=== PATIENT | male | born 1965 | race Caucasian/White ===

== ENCOUNTER → 2020-09-17 16:52 | Outpatient (BNVA) | payer MEDICAID, SELFPAY | PROVIDERS: Family Provider Family Medicine; Visit Provider Nurse Practitioner Family | DX: Z02.83 Encounter for blood-alcohol and blood-drug test (principal) | CPT/HCPCS: 80307 ==

== ENCOUNTER → 2020-10-30 11:23 | Outpatient (BNVA) | payer MEDICAID, SELFPAY | PROVIDERS: Family Provider Family Medicine; Visit Provider Family Medicine | DX: I10 Essential (primary) hypertension (principal); M17.11 Unilateral primary osteoarthritis, right knee; E78.2 Mixed hyperlipidemia; R53.83 Other fatigue | CPT/HCPCS: 73562; 80053; 80061; 82607 ==

== ENCOUNTER → 2020-11-18 09:47 | Outpatient (BNVA) | payer MEDICAID, SELFPAY | PROVIDERS: Family Provider Family Medicine; Referring Provider Family Medicine; Visit Provider Specialist | DX: M17.11 Unilateral primary osteoarthritis, right knee (principal) | CPT/HCPCS: 73560; 73565 ==

== ENCOUNTER → 2021-02-06 09:04 | Outpatient (BNVA) | payer BC, SELFPAY | PROVIDERS: Family Provider Family Medicine; Visit Provider Specialist | DX: Z01.818 Encounter for other preprocedural examination (principal); M17.11 Unilateral primary osteoarthritis, right knee | CPT/HCPCS: 87635 ==

== ENCOUNTER 2021-02-11 09:57 | Observation (INO) | payer BC, MEDICAID, SELFPAY ==
[2021-02-06 10:16] VITALS: BMI 28.0
--- NOTE | 2021-02-06 10:46 | ECG_ITS ---
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 Measurements Intervals [place] Rate: 59 P: 72 PA: 132 QRS: 15 QRSD: 101 T: 69 QT: 377 QTc: 374 Interpretive Statements SINUS BRADYCARDIA NONSPECIFIC T-WAVE ABNORMALITY No previous ECG available for comparison Electronically Signed On 02-06-2021 20:40:51 [employer]PERATIONS MANAGER by Wili Huang M.D. [email or web address]
--- NOTE | 2021-02-06 10:46 | ANES.PREANE2 ---
Pre-Anesthetic Assessment Pre-Anesthetic Assessment: Height/Weight: Height 1.7 m Weight 81.193 kg Proposed Procedure: Operation Date: 02/11/21 07:00 Proposed Procedures p Total Knee Arthroplasty 97532 M17.10(Right) - Ankita Mercedes MD Was Beta Nishant taken within 24 hours: N/A Was Clonidine taken within 24 hours: N/A Social: Social History: Alcohol and Tobacco Exam: Pre-Anes Outpt Exam: alert, oriented x 3, clear to auscultation bilaterally and regular rate & rhythm Airway: Submandibular: WNL Cervical ROM: WNL MP: 1 Dentition: False Pulmonary: Pulmonary: SELBY Comments: Denies lung disease, active smoker CV/HEM: CV/HEM: HTN Comments: Denies cardiac disease EKG reviewed. : : None reported Hepatic: Hepatic: None reported GI: GI: None reported Metabolic: Metabolic: None reported Musc/skel: Comments: Chronic right sided pain s/p CVA Neuropsych: Neuropsych: CVA Comments: Stroke from uncontrolled htn per patient. Patient awoke with stroke symptoms. Residual sequalae of right side weakness and pain. Anesthetic Plan: ASA status: 3 Anesthesia: Anesthesia Evaluation, Eval. for regional block, General and Regional (specify below) Other: We discussed anesthetic options and their risk and benefits including adductor canal block for post op pain control, spinal w/ and w/o sedation with possible conversion to general, and general. Patient signed consent for these anesthetic options. Plan adductor canal block for post op pain control and spinal w/ sedation as needed. Risk of > 500 ml blood loss (7ml/kg in children): No PFSH Anesthesia PFSH: Medical History B12 deficiency Hyperlipemia Hypertension Social History Alcohol intake: former Data Anesthesia Cardiac Studies: No Data to Display
[2021-02-06 11:05] LABS: Add Urine Microscopic? NO; Charge for UA Resulting for Rev
[2021-02-06 11:10] LABS: Bilirubin Urine Neg (Negative); Blood Urine Neg (Negative); Glucose Urine UA Norm (Normal); Ketones Urine Negative (Negative); Leukocyte Esterase Urine Negative (Negative); Nitrate Urine Negative (Negative); Protein Urine Neg (Negative); Specific Gravity, Urine 1.005 (1.005-1.030); Urine Appearance Clear (CLEAR); Urine Color Yellow (Yellow); Urobilinogen Urine Norm (Negative); pH Urine 5 (5-7)
[2021-02-06 11:16] LABS: Basophils % 0.3 %; Eosinophils # 0.3 10^3/uL (0.0-0.8); Eosinophils % 3.3 %; Hemoglobin 13.3 g/dL (11.7-16.6); Lymphocytes # 2.8 10^3/uL (0.8-4.8); Lymphocytes % 28.9 %; Mean Corpuscular HGB Conc 34.1 g/dL (30.0-36.0); Mean Corpuscular Hemoglobin 30.8 pg (28.0-34.0); Mean Corpuscular Volume 90.3 fl (80-94); Mean Platelet Volume 9.6 fL (7.4-10.4); Monocytes # 0.7 10^3/uL (0.2-0.9); Monocytes % 7.3 %; Neutrophils # 5.86 10^3/uL (1.8-7.7); Neutrophils % 59.9 %; Nucleated Red Blood Cells % 0 %; Platelet Count 253 10^3/cmm (130-400); Red Blood Count 4.32 10^6/uL (4.1-5.3); Red Cell Distribution Width 12.4 % (12.1-15.1); White Blood Count 9.8 10^3/uL (4.0-10.0)
[2021-02-06 11:37] LABS: Alanine Aminotransferase 23 U/L (0-41); Albumin Level 4.5 g/dL (3.5-5.2); Alkaline Phosphatase 77 IU/L (40-130); Anion Gap 17.7 (5-19); Aspartate Amino Transferase 16 U/L (0-40); Blood Urea Nitrogen 20 mg/dL (6-20); Calcium 8.9 mg/dL (8.5-10.5); Carbon Dioxide 21 mmol/L (22-29); Chloride 102 mmol/L (98-107); Globulin 2.4 g/dL (1.3-4.6); Glomerular Filtration Rate 69.8 mL/min (90-130); Glucose 87 mg/dL (65-115); Osmolality Calculated 284 mOsm/kg (285-295); Potassium 4.7 mmol/L (3.5-5.1); Sodium 136 mmol/L (136-145); Total Bilirubin 0.2 mg/dL (0.15-1.2); Total Protein 6.9 g/dL (6.6-8.7)
[2021-02-11] VITALS (15 sets, daily range): BP systolic 115–164; BP diastolic 68–84; PULSE 51–91; RESP 12–19; TEMP 36.3–37.2; O2SAT 90–311; BMI 28.0
--- NOTE | 2021-02-11 06:27 | P.ANESUD_ITS ---
Pre-Anesthetic Update Pre-Anesthetic Assessment: Date of Surgery/Procedure: 02/11/21 Preop Susan gnosis: Primary osteoarthritis right knee Proposed Procedure: Operation Date: 02/11/21 07:00 Proposed Procedures p Total Knee Arthroplasty 44169 M17.10(Right) - Ankita Mercedes MD Any changes to Pre-Anesthetic Assessment?: No Exam: Pre-Anes Outpt Exam: alert, oriented x 3, clear to auscultation bilaterally and regular rate & rhythm Cardiac Studies: No Data to Display
[2021-02-11] MEDS: acetaminophen 1,000 MG/100 ML PIGGYBACK 400 MG IV (06:42)
[2021-02-11] MEDS: sodium chloride 0.9% 1,000 ML 30 ML IV (06:42)
[2021-02-11] MEDS: vancomycin 1,000 MG in sodium chloride 0.9% 250 ML 250 MG IV (06:45)
[2021-02-11] MEDS: CELEcoxib 200 mg Capsule 400 MG PO (06:46)
--- NOTE | 2021-02-11 06:58 | P.HPUD_ITS ---
Surgery/Procedure H&P Update DATE OF PROCEDURE: February 11, 2021 DATE H&P PERFORMED: 01/22/21 H&P UPDATE INFORMATION: I have reviewed H&P completed within last 30 days, I have examined patient prior to procedure, No changes to prior documentation and H&P is in [facility] EMR on date indicated PREOP DIAGNOSIS: Primary osteoarthritis right knee PLANNED PROCEDURE: Operation Date: 02/11/21 07:00 Proposed Procedures p Total Knee Arthroplasty 04998 M17.10(Right) - Ankita Mercedes MD Related Problem List Diagnoses (1) Primary osteoarthritis of right knee:
--- NOTE | 2021-02-11 07:07 | ANES.PROC ---
Anesthesia Procedures Procedure/Date: 02/11/21 Nerve Block ^: Nerve Block 1: Main Anesthesia: general anesthesia Time Out Performed: Yes Consent: requested by attending/covering physician, from patient, risks and benefits reviewed and patient agrees to proceed Nerve block location: popliteal Anesthesia monitors applied: pulse oximetry, EKG, BP cuff and oxygen Nerve block position: supine Anesthetic Used: ropivicaine 0.5% and with decadron (4 mg) Amount of anesthesia used (mL): 30 Ultrasound used to: recognize landmarks and visualize and ID femerol nerve Nerve Stimulator Used?: No Interscalene/Femoral BLK: 4 stimuplex 21 g needle used for position and inplane approach, visualize local anesthetic spread and no vascular puncture identified Injection: neg aspiration of heme Patient Tolerated Procedure: well and no complications Complications: none
[2021-02-11] MEDS: vancomycin 1,000 MG SDV 1000 MG XX (08:30)
[2021-02-11] MEDS: ceFAZolin 1,000 mg SDV 2000 MG IRRIGATION (08:30)
--- NOTE | 2021-02-11 10:29 | PC.NURSE ---
Ice placed on patients right knee at this time.
--- NOTE | 2021-02-11 10:43 | XR_ITS ---
WS: [id number] Right knee, AP and lateral views, 02/11/2021 Clinical Data: Status post right total knee arthroplasty Comparison: Right knee, 11/18/2020. Findings: A right knee arthroplasty is in good position. There is air in the joint space and the adjacent subcu taneous tissue of the femur and tibia. Anterior surgical kathy are present. XR/XR knee RT 3V* [id number] Impression: Right knee arthroplasty
--- NOTE | 2021-02-11 10:44 | PM.OP ---
Operative Report Date of procedure: February 11, 2021 Pre-op Diagnosis: Primary osteoarthritis right knee Post-op diagnosis: same Post-op Findings: Significant degenerative osteoarthritis Procedure Done: Right total knee arthroplasty Implants: The [place] total knee system with a size 4 triathlon beaded posterior stabilized femur right, a triathlon titanium tibial component size 5 beaded, a triathlon X3 posterior stabilized tibial bearing insert size 5 X 16 mm and a beaded triathlon titanium asymmetric patella size 35 x 10 mm Specimens removed/disposition: Bone, disposed of Pathology: none sent Surgeon: Ankita Mercedes Senior Web Developer: [facility] operating room technicians Anesthesia: General (Intubated, ASA 3) Estimated blood loss (mL): 10 Tourniquet time (min): 128 Tourniquet time: At 250 mmHg IV fluids (mL): 1,000 Urine output (mL): 300 Complications: None Findings: Significant degenerative osteoarthritis Condition: stable Disposition: PACU (Then to floor for postoperative rehabilitation and pain management) Brief History: This 55-year-old gentleman presented to my office with complaints of severe right knee pain causing him significant limitations in activities of daily living. The patient was unresponsive to conservative measures. After extended discussion regarding his age as well as the severity of his symptoms, the decision was made to proceed with right total knee arthroplasty. The patient understands that given his young age, he may require revision surgery in the future. He certainly, however, has decrease in functionality and his pain level is quite high. Preoperatively, questions were answered and consents were signed. The patient will be admitted to the hospital postoperatively under observation status for postoperative rehabilitation. Procedure: The patient was brought to the operating theater, and after undergoing adequate general anesthesia, intubated, with regional block, ASA 3, the right lower extremity was prepped with Dura-Prep and draped in usual fashion following placement of a tourniquet high on the leg. The leg was then draped free. Following prepping and draping, the leg was exsanguinated, and the tourniquet was elevated to 250 mm Hg for a total tourniquet time of 128 minutes. Prior to elevation of the tourniquet, but following exposure of the site of surgery, a surgical pause was performed. At the time of the surgical pause, we confirmed the site and side of surgery. Additionally, we confirmed the appropriate and timely administration of preoperative antibiotics, vancomycin 1 g and Transexemic acid 1 g. The availability of equipment was confirmed, and the patient's identity was verbalized as well. Following the surgical pause, an incision was made centering over the patella continuing proximally and distally as necessary to allow access to the knee joint. Dissection continued through skin and soft tissues using a scalpel. Hemostasis was obtained using electrocautery. The skin incision was followed by a median parapatellar arthrotomy. The leg was extended and the patella was everted. Following this, the leg was returned to flexed position. The distal femur was exposed and a drill hole was made in this for placement of the distal femoral jig. The distal femoral jig was set at 5? of valgus. The distal femoral cutting block was then placed in appropriate position, and an viky wing was used to confirm an appropriate amount of distal femur would be resected. The distal femoral resection was accomplished with 8 mm of bone being resected distally. After the distal femoral resection had been accomplished, the femur was measured and it measured a size 4 in an anterior posterior direction. Medial lateral dimension measured a size 5, but anteriorly, there was abnormality to the shape of the femur, and if we had placed a size 5, there would have been very poor contact of the anterior flange of the femoral component. Therefore, plans were made for a size 4 femoral component. A size 4 femoral cutting block was placed in position, and we were then able to accomplish the anterior, posterior and chamfer cuts. This jig was then removed, and the notch guide was placed in position. With the notch guide in appropriate position, the notch was excised including resection of the anterior and posterior cruciate ligaments. This notch was to allow for the posterior stabilized femoral component. At this point, the femur was prepared and attention was directed to the proximal tibia. The posterior knee retractor was placed along with medial and lateral retractors. Further resection of the menisci was accomplished as we had better visualization. A complete meniscectomy was performed both medially and laterally with care being taken to protect the popliteus. Retractors were then placed so that the proximal tibia was well visualized. A drill hole was then made in the tibia for placement of the intramedullary guide. This guide was placed so that approximately 2 mm of bone would be resected from the medial tibial plateau, and this resulted in 4+ mm resected from the lateral tibial plateau. The intramedullary guide was utilized supplemented with an extramedullary guide to assure appropriate alignment for the proximal tibial resection. The proximal tibial jig was then evaluated, pinned in position, and the proximal tibial resection was accomplished without difficulty. The jig was removed, and the proximal tibia was measured. It measured a size 5. We then attempted a trial reduction with a size 5 by 11 mm insert. To better balance the knee, a slight medial release was accomplished, and trial reduction was accomplished with an 13 mm followed by a 16 mm insert. With this, the femoral component was placed in position for the trial reduction, and the knee was placed through range of motion. There was excellent stability with excellent varus-valgus alignment with appropriate patellar tracking. Extension was noted to be full as well. This was felt to be the appropriate size insert. There was full extension and flexion without lift off and the rotation of the tibia was marked. Alignment was checked from the hip to the ankle, and this was noted to be appropriate as well. Attention was then directed to the patella. The patella was measured with a caliper. We resected sufficient patella to leave approximately 15 mm of patella remaining. Measurements of the patella then indicated that a size asymmetric 35 mm x 10 mm was the appropriate patellar size. We then placed the jig to drill for the 3 pegs of the press-fit patella, and these drill holes were made without incident. A trial patella was then placed, and the knee was placed through range of motion. The patella was noted to track nicely without evidence of subluxation. The femur was prepared for a press-fit femur by drilling 2 holes for the femoral pegs. All trial components were subsequently removed. The tibial tray was then pinned into position, and we broached the tibia for the stem of the tibial component. Subsequently, 4 drill holes were made for placement of the press-fit tibia. This was accomplished without difficulty. Care was taken to assure appropriate rotation of the tibia as well as appropriate position on the proximal tibia. The tibial tray was completely seated on the proximal tibia. Following broaching, the tibial guide was removed, and all surfaces were copiously irrigated. The surfaces were then dried and a bone plug was placed into the distal femur. Exparel was also injected at this point. The Tritanium tibia was impacted into position. The beaded femur was then impacted into position in a cementless fashion. The tibial insert was placed. The patella was pressed into position with a patellar clamp. The knee was irrigated with 20 mL of Betadine and 500 mL of normal saline, and this was allowed to remain in the knee for 3-4 minutes. The knee was then copiously irrigated and suctioned dry. The knee was placed through aggressive range of motion, and with flexion beyond approximately 110 degrees, there was a click with return to full extension. This was addressed with a partial bony resection along the lateral femoral condyle. Following this resection, there was no more clicking with aggressive range of motion. At that time attention was then directed to closure. Closure was accomplished with 0 Vicryl in the fascial tissues. Following this, a 2-0 Monocryl was used in the subcutaneous tissues, and the skin was closed with skin kathy. A sterile dressing was then placed consisting of dermabond Prineo, OpSite, ABD, sterile soft roll, and an John wrap. The patient was returned the Recovery Room in a satisfactory condition. X-rays were obtained there. The patient will be discharged to the floor for postoperative rehabilitation and pain management. Associated Problem List Diagnoses (1) Status post total right knee replacement not using cement: (2) Primary osteoarthritis of right knee:
[2021-02-11] MEDS: oxyCODONE 5 mg IR Tab/Cap PO (13:40)
[2021-02-11] MEDS: chlorhexidine gluconate 0.12% Btl 473 mL 30 ML MUCOUS MEM (13:42)
[2021-02-11] MEDS: sodium chloride 0.9% 1,000 ML 100 ML IV (13:42)
--- NOTE | 2021-02-11 16:51 | P.DS_ITS ---
Discharge Providers Date of Admission: 02/11/21 09:57 Date of Discharge: February 11, 2021 Attending Provider at Admission: Ankita Mercedes MD Attending Provider at Discharge: Ankita Mercedes MD Primary Care Provider: Beatriz Peace NP Diagnoses at Discharge Discharge Diagnosis (1) Status post total right knee replacement not using cement: Status: Acute Permanent problem details: The [place] total knee system with a size 4 triathlon beaded posterior stabilized femur right, a triathlon titanium tibial component size 5 beaded, a triathlon X3 posterior stabilized tibial bearing insert size 5 X 16 mm and a beaded triathlon titanium asymmetric patella size 35 x 10 mm (2) Primary osteoarthritis of right knee: Status: Acute Reason for Visit Reason for Visit: osteoarthritis right knee Hospital Course Hospital Course This 55-year-old gentleman presented with complaints of severe right knee pain which caused significant limitations in his activities of daily living. He came to the hospital for same-day surgery. The surgical procedure performed was right total knee arthroplasty without cement. This was well-tolerated. The patient was returned to the floor postoperatively. He worked with physical therapy, and he was able to go up and down stairs and walk up and down the davis. As he was doing so well, he wished to be discharged to home. Discussion was undertaken with the nurses and with physical therapy. We all agree that this would be a safe discharge. Therefore, the patient is discharged to home. Physical Exam Const: COMMON NORMALS: no acute distress, average body habitus, patient oriented x3 and alert GENERAL APPEARANCE: cooperative and comfortable ORIENTATION/CONSCIOUSNESS: Yes awake HENMT: COMMON NORMALS: normocephalic and atraumatic HEAD & SCALP: normocephalic and atraumatic Eye: GENERAL EYE: appearance normal, both eyes and all related structures Chest: COMMONS NORMALS: normal inspection of the chest Resp: COMMON NORMALS: normal respiratory effort EFFORT & INSPECTION: Yes able to speak in complete sentences and Yes symmetric chest movement Extremity: RIGHT LOWER EXTREMITY: Yes knee joint (Dressing in place.) Right knee: Yes ROM (Tolerating CPM.) and Yes neurovascular exam (Intact distally.) Neuro: COMMON NORMALS: patient oriented x3 SENSORIUM/ORIENTATION: Yes alert Psych: COMMON NORMALS: mental status grossly normal APPEARANCE: Yes grossly normal ATTITUDE: Yes calm and Yes engaged ATTENTION/CONCENTRATION: Yes attention grossly intact Skin: COMMON NORMALS: no rashes or lesions noted GENERAL SKIN EXAM: no rashes or lesions noted Urinary Catheter Management^: [place]: Cath Placed During This Visit: yes Urinary Catheter Date of Insertion: 02/11/21 Urinary Catheter Time of Insertion: 07:40 Discharge Data Data Completed and Pending: Completed Studies During Hospitalization Category Date Time Status XR knee RT 3V* [id number] Urgent Exams 02/11/21 10:43 Completed Vitals: Last Vital Signs Temp 98.9 F 02/11/21 16:42 Pulse 91 02/11/21 16:42 Resp 16 02/11/21 16:42 BP 162/84 02/11/21 16:42 Pulse Ox 95 02/11/21 16:42 Discharge Plan Discharge Patient Disposition: Home Health Service Condition: Stable Prescriptions: New celecoxib 200 mg Capsule 200 mg PO Q12H 30 Days Qty: 60 RF: 0 acetaminophen 500 mg Tablet 1,000 mg PO Q8H 15 Days Qty: 90 RF: 0 aspirin 325 mg Tablet,Delayed Release (Dr/Ec) 325 mg PO BID 30 Days Qty: 60 RF: 0 oxycodone 5 mg Tablet 5 mg PO Q4H PRN (Reason: Moderate Pain) 7 Days Qty: 30 RF: 0 Continued lisinopril 20 mg tablet 40 mg PO DAILY 30 Days Qty: 60 RF: 2 amlodipine 10 mg tablet 10 mg PO DAILY 30 Days Qty: 30 RF: 2 Hold Instructions: Doctor's Order atorvastatin 80 mg tablet 40 mg PO DAILY Qty: 30 RF: 2 mecobalamin (vitamin B12) 5,000 mcg tablet,disintegrating 5,000 mcg PO DAILY 90 Days Qty: 90 RF: 3 Held aspirin 81 mg tablet,delayed release (DR/EC) 81 mg PO DAILY RF: 0 Hold Instructions: Resume on 02/11/21. hydrocodone-acetaminophen 5-325 mg tablet 1 tab PO DAILY PRN (Reason: pain) 30 Days Qty: 30 RF: 0 Hold Instructions: Resume on 02/18/21. Discharge Orders: Discharge Order (Routine); Ordered 02/11/21 Ordered By: Ankita Mercedes Other Ambulatory Orders: DME: David (Order) Location: None Selected Ordered By: Ankita Mercedes Referrals: Ankita Mercedes MD [Physician] - 02/24/21 11:30 am Discharge Diet: Advance as tolerated and Usual diet Discharge Activity: Increase activity as tolerated, Limit activity as instructed and Use walker/crutches as instructed Patient Instructions: Oxycodone/Acetaminophen (By mouth), Aspirin (By mouth), Celecoxib (By mouth), Opioid Safety Activity Restrictions/Additional Instructions: Range of motion, ambulation, and gait training with physical therapy. Ice and elevate. You may remove your dressing down to the clear plastic if it has not been removed in the hospital. Discharge Attestations Time Spent in Discharge Care*: greater than 30 min Specific Discharge Activities: educating patient, documenting/other paperwork and evaluating patient/reviewing data Quality Metrics Clinical Quality Measures During this hospital stay, did patient experience: None Coding Level of Care Code Acute [facility] note Diagnoses Status post total right knee replacement not using cement Z96.651 Primary osteoarthritis of right knee M17.11
--- NOTE | 2021-02-12 10:15 | PC.OT ---
OT EVALUATION NOT COMPLETED DUE TO PATIENT DISCHARGE BEFORE EVALUATION COULD BE COMPLETED.
--- NOTE | 2021-02-12 11:48 | ANE.PACU2 ---
Inpatient post-anesthesia follow up: Airway intact: Yes Vital signs: Temperature 98.9 F Pulse Rate 91 Respiratory Rate 16 Blood Pressure 162/84 Pulse Oximetry 95 Oxygen Delivery Me thod Room Air Oxygen Flow Rate 6 Fraction of Inspir ed Oxygen Hydration adequate: Yes Nausea and vomiting: No Pain level: 2 Mental status: Baseline
== END 2021-02-11 16:15 | disposition home health service (06) ==
LOC: MEDSURG 09:57
PROVIDERS: Admitting Provider Specialist; PCP Nurse Practitioner Family; Visit Provider Specialist
PROC: (CPT 27447; principal; 2021-02-11 07:00)
DX: M17.11 Unilateral primary osteoarthritis, right knee (principal); Z79.82 Long term (current) use of aspirin; I10 Essential (primary) hypertension; F17.210 Nicotine dependence, cigarettes, uncomplicated; Z86.73 Personal history of transient ischemic attack (TIA), and cerebral infarction without residual deficits; E78.5 Hyperlipidemia, unspecified
CPT/HCPCS: 27447; 51702; 64447; 73562; 76942; 80053; 81003; 85025; 93005; 97116; 97161; C1776; C9290; G0378; J0690; J1100; J2405; J2704; J2710; J2795; J3010; J3370; J3490; J7030; J7050

== ENCOUNTER → 2021-02-24 11:35 | Outpatient (BNVA) | payer BC, SELFPAY | PROVIDERS: PCP Nurse Practitioner Family; Visit Provider Specialist | DX: Z96.651 Presence of right artificial knee joint (principal) | CPT/HCPCS: 73560; 73565 ==

== ENCOUNTER → 2021-03-26 14:28 | Outpatient (BNVA) | payer BC, MEDICAID, SELFPAY | PROVIDERS: PCP Nurse Practitioner Family; Visit Provider Specialist | DX: Z96.651 Presence of right artificial knee joint (principal); M17.11 Unilateral primary osteoarthritis, right knee | CPT/HCPCS: 73560; 73565 ==

== ENCOUNTER → 2021-11-25 09:36 | Outpatient (BNVA) | payer BC, MEDICAID, SELFPAY | PROVIDERS: PCP Family Medicine; Visit Provider Family Medicine | DX: M17.11 Unilateral primary osteoarthritis, right knee (principal); I10 Essential (primary) hypertension; I63.9 Cerebral infarction, unspecified; E78.2 Mixed hyperlipidemia; Z23 Encounter for immunization | CPT/HCPCS: 80053; 80061 ==

== ENCOUNTER → 2022-06-03 10:10 | Outpatient (BNVA) | payer BC, MEDICAID, SELFPAY | PROVIDERS: PCP Family Medicine; Visit Provider Family Medicine | DX: I10 Essential (primary) hypertension (principal); E53.8 Deficiency of other specified B group vitamins; R53.83 Other fatigue | CPT/HCPCS: 80048; 82607 ==

== ENCOUNTER → 2022-07-02 11:08 | Outpatient (BNVA) | payer BC, MEDICAID, SELFPAY | PROVIDERS: PCP Family Medicine; Visit Provider Family Medicine | DX: N17.9 Acute kidney failure, unspecified (principal); E53.8 Deficiency of other specified B group vitamins | CPT/HCPCS: 80048 ==

== ENCOUNTER → 2022-12-02 11:17 | Outpatient (BNVA) | payer MEDICARE, MEDICAID, SELFPAY | PROVIDERS: PCP Family Medicine; Visit Provider Family Medicine | DX: I10 Essential (primary) hypertension (principal); I63.9 Cerebral infarction, unspecified; M17.11 Unilateral primary osteoarthritis, right knee; E78.2 Mixed hyperlipidemia; Z28.21 Immunization not carried out because of patient refusal | CPT/HCPCS: 80048; 80061 ==